=== PATIENT | male | born 1955 | race Two or more races ===

== ENCOUNTER 2018-01-28 14:04 | Emergency (ER) | payer OTHER ==
[2018-01-28 14:18] VITALS: BP 175/110; PULSE 80; TEMP 98.2
--- NOTE | 2018-01-28 14:23 | PDOC ---
Rapid Medical Evaluation Time Seen by Provider: 01/28/18 14:18 Medical Evaluation: Allergies Allergy/AdvReac Type Severity Reaction Status Date / Time No Known Allergies Allergy Verified 01/28/18 14:13 01/28/18 14:18 I have performed a brief in-person evaluation of the patient. The patient presents with a chief complaint of : blood in urine x 3 days. Patient reports after working and doing heavy lifting he notices blood in urine. Had a right iguinal hernia 15 years ago Pertinent physical exam findings. NAD unlabored breating no abdominal tenderness I have ordered the following urinalysia, urine culture, cbc, type and hold This patient will proceed to the ED for further evaluation.
--- NOTE | 2018-01-28 14:38 | PDOC ---
History of Present Illness - General Chief Complaint: Hematuria Stated Complaint: URINARY PROBLEM Time Seen by Provider: 01/28/18 14:18 - History of Present Illness Initial Comments: 62 year old male with no PMH presenting with dark red urine for the past three days. 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 Denies genital pain, lower back pain, fevers, chills, nausea, vomiting, diarrhea, cough, or other symptoms. He has no family history of kidney disease, denies trauma to the kidneys, denies smoking history, frequent EtOh ingestion, or recent travel. He saw his PCP last two years ago and was not diagnosed with any issues. He does admit that he no longer has a PCP and never consistently followed with him in the past. 01/28/18 14:50 Past History - Past Medical History Allergies/Adverse Reactions: Allergies Allergy/AdvReac Type Severity Reaction Status Date / Time No Known Allergies Allergy Verified 01/28/18 14:13 COPD: No - Suicide/Smoking/Psychosocial Hx Smoking History: Never smoked Hx Alcohol Use: No Drug/Substance Use Hx: No Substance Use Type: None Review of Systems - Review of Systems Constitutional: No: Chills, Diaphoresis, Fever, Loss of Appetite HEENTM: No: Blurred Vision, Tearing Respiratory: No: Cough, Orthopnea, Shortness of Breath Cardiac (ROS): No: Chest Pain, Edema, Irregular Heart Rate ABD/GI: No: Diarrhea, Nausea, Vomiting : No: Dysuria, Discharge, Frequency Musculoskeletal: No: Back Pain, Gout, Joint Pain, Muscle Weakness Integumentary: No: Bruising, Lesions, Lumps Neurological: No: Headache, Numbness, Paresthesia Psychiatric: No: Anxiety, Depression Hematologic/Lymphatic: No: Anemia, Blood Clots, Easy Bleeding *Physical Exam - Vital Signs Last Vital Signs Temp Pulse Resp BP Pulse Ox 98.2 F 80 20 175/110 98 01/28/18 14:13 01/28/18 14:13 01/28/18 14:13 01/28/18 14:13 01/28/18 14:13 - Physical Exam General Appearance: Yes: Nourished, Appropriately Dressed. No: Apparent Distress HEENT: positive: EOMI, JUSTINO, Normal ENT Inspection, Normal Voice Neck: positive: Trachea midline, Normal Thyroid, Supple. negative: Tender, Rigid Respiratory/Chest: positive: Lungs Clear, Normal Breath Sounds. negative: Chest Tender, Respiratory Distress, Accessory Muscle Use Cardiovascular: positive: Regular Rhythm, Regular Rate Gastrointestinal/Abdominal: positive: Normal Bowel Sounds, Flat, Soft. negative : Tender Musculoskeletal: positive: Normal Inspection. negative: CVA Tenderness Extremity: positive: Normal Capillary Refill, Normal Inspection, Normal Range of Motion. negative: Tender Integumentary: positive: Normal Color, Dry, Warm Neurologic: positive: Fully Oriented, Alert, Normal Mood/Affect, Normal Response , Motor Strength 01/03 ED Treatment Course - LABORATORY CBC & Chemistry Diagram: 01/28/18 14:33 01/28/18 14:33 Medical Decision Making - Medical Decision Making 62 year old male with no known PMH presenting with painless hematuria for the past few days in the setting of increased physical workoad. Denies any history of renal disease or family history. He is also hypertensive. With this constellation of symptoms, we are concerned for a renal lesion such as renal cell carcinoma. Other intrarenal lesions and intra urinary tract lesions should be ruled out with a ct abdomen/ pelvis with IV contrast. Patient signed out to Dr. Sales pending scan and disposition. 01/28/18 19:01 *DC/Admit/Observation/Transfer Diagnosis at time of Disposition: Hematuria Qualifiers: Hematuria type: gross Qualified Code(s): R31.0 - Gross hematuria - Referrals - Patient Instructions - Post Discharge Activity
[2018-01-28 14:50] LABS: BASO % 0.5 % (0-2.0); HEMATOCRIT 40.9 % (35.4-49); HEMOGLOBIN 14.5 GM/dL (11.7-16.9); LYMPH % 34.3 % (8-40); MCH 34.3 pg (25.7-33.7); MCHC 35.4 g/dl (32.0-35.9); MEAN PLT VOLUME 9.4 fl (7.5-11.1); MONO % 6.5 % (3.8-10.2); NEUT % 55.7 % (42.8-82.8); PLATELET COUNT 119 K/MM3 (134-434); RBC 4.21 M/mm3 (4.00-5.60); RDW 12.6 % (11.9-15.9); WHITE BLOOD COUNT 3.2 K/mm3 (4.0-10.0)
[2018-01-28 15:00] LABS: URINE APPEARANCE CLOUDY; URINE BILIRUBIN NEGATIVE (<2.0 mg/dL); URINE COLOR YELLOW; URINE GLUCOSE (UA) NEGATIVE (NEGATIVE); URINE KETONE NEGATIVE (NEGATIVE); URINE LEUK ESTERASE NEGATIVE (NEGATIVE); URINE NITRITE NEGATIVE (NEGATIVE); URINE UROBILINOGEN 4.0 E.U/dl mg/dL (0.2-1.0)
[2018-01-28 15:01] LABS: PROTHROMBIN TIME (PATIENT) 11.3 SEC (9.7-13.0)
[2018-01-28 15:04] LABS: ACTIVATED PTT 29.6 SECONDS (26.9-34.4)
[2018-01-28 15:13] LABS: ALBUMIN 3.8 g/dl (3.4-5.0); ALK PHOS 51 U/L (45-117); ANION GAP 6 (8-16); CALCIUM 8.3 mg/dL (8.5-10.1); CHLORIDE 104 mmol/L (98-107); CO2 28 mmol/L (21-32); CREATININE 1.3 mg/dL (0.7-1.3); GLUCOSE,RANDOM 171 mg/dL (74-106); POTASSIUM 3.6 mmol/L (3.5-5.1); SGOT/AST 21 U/L (15-37); SGPT/ALT 28 U/L (12-78); SODIUM 138 mmol/L (136-145)
[2018-01-28 15:32] LABS: BILIRUBIN,TOTAL 0.7 mg/dL (0.2-1.0); BLOOD UREA NITROGEN 15 mg/dL (7-18); TOT PROT 7.3 g/dl (6.4-8.2)
[2018-01-28 15:35] LABS: URINE PROTEIN 1+ (NEGATIVE)
--- NOTE | 2018-01-28 15:38 | PDOC ---
Attending Attestation - Resident Resident Name: Fredy Brar - ED Attending Attestation I have performed the following: I have examined & evaluated the patient, The case was reviewed & discussed with the resident, I agree w/resident's findings & plan, Exceptions are as noted - HPI HPI: 01/28/18 15:38 The patient is a 62 year old male, with no significant past medical history, who presents to the emergency department with hematuria for approximately 5 days. The patient reports he first noted his urine was darker than his baseline and was a red tinge Friday night. Patient reports he initially passed clots, but that has cleared since. Patient reports he does heavy lifting at work and occasionally leans these objects on his abdomen, and he is afraid to have injured his hernia surgical site. He denies any abdominal pain, nausea, vomiting, diarrhea, constipation, melena, hematochezia, or bowel incontinence. He denies any flank pain, dysuria, frequency, urgency, or urinary incontinence. He denies any fever, chills, cough, headache, dizziness, lightheadedness, night sweats, or weight loss. He denies any family history of blood in the urine or kidney disease. Allergies: NKDA Past Surgical History: Hernia repair Social History: Non smoker. No ETOH or recreational drug use. - Physicial Exam PE: 01/28/18 15:40 GENERAL: Awake, alert, and fully oriented, in no acute distress HEAD: No signs of trauma EYES: PERRLA, EOMI, sclera anicteric, conjunctiva clear ENT: Auricles normal inspection, hearing grossly normal, nares patent, oropharynx clear without exudates. Moist mucosa NECK: Normal ROM, supple, no lymphadenopathy, JVD, or masses LUNGS: Breath sounds equal, clear to auscultation bilaterally. No wheezes, and no crackles HEART: Regular rate and rhythm, normal S1 and S2, no murmurs, rubs or gallops ABDOMEN: Soft, nontender, normoactive bowel sounds. No guarding, no rebound. No masses. No CVAT. EXTREMITIES: Normal range of motion, no edema. No clubbing or cyanosis. No cords, erythema, or tenderness NEUROLOGICAL: Normal speech, cranial nerves intact, negative pronator drift, 5/ 5 strength in all 4 extremities, normal sensation to light touch in all 4 extremities, normal cerebellar exam, normal gait, normal reflexes and tone SKIN: Warm, Dry, normal turgor, no rashes or lesions noted. - Medical Decision Making 01/28/18 15:40 62yo M with no significant past medical history presents to the emergency department with 5 days of hematuria. Vitals remarkable for hypertension, which patient denies any history of. Exam within normal limits. Essentially the patient has painless hematuria. Unclear etiology of the symptoms, thus we'll obtain a CT abdomen and pelvis in addition to labs and urinalysis and reassess. 01/28/18 16:21 Labs wnl. UA with many reds/whites CTAP pending Pt signed out to evening attending for further mgmt/dispo
[2018-01-28 15:48] LABS: URINE APPEARANCE SLCLOUDY; URINE BILIRUBIN NEGATIVE (<2.0 mg/dL); URINE COLOR LTYELLOW; URINE GLUCOSE (UA) NEGATIVE (NEGATIVE); URINE KETONE NEGATIVE (NEGATIVE); URINE LEUK ESTERASE NEGATIVE (NEGATIVE); URINE NITRITE NEGATIVE (NEGATIVE); URINE PROTEIN NEGATIVE (NEGATIVE); URINE UROBILINOGEN 4.0 E.U/dl mg/dL (0.2-1.0)
--- NOTE | 2018-01-28 19:10 | PDOC ---
*Physical Exam - Vital Signs Last Vital Signs Temp Pulse Resp BP Pulse Ox 98.2 F 80 20 175/110 98 01/28/18 14:13 01/28/18 14:13 01/28/18 14:13 01/28/18 14:13 01/28/18 14:13 ED Treatment Course - LABORATORY CBC & Chemistry Diagram: 01/28/18 14:33 01/28/18 14:33 - ADDITIONAL ORDERS Additional order review: Laboratory Results 01/28/18 01/28/18 01/28/18 15:03 14:33 14:33 PT with INR INR PTT (Actin FS) Sodium Potassium Chloride Carbon Dioxide Anion Gap BUN Creatinine Creat Clearance w eGFR Random Glucose Calcium Total Bilirubin AST ALT Alkaline Phosphatase Creatine Kinase 245 Creatine Kinase Index 0.4 CK-MB (CK-2) 1.035 Total Protein Albumin Urine Color Ltyellow Urine Appearance Slcloudy Urine pH 8.0 Ur Specific [place] 1.016 Urine Protein Negative Urine Glucose (UA) Negative Urine Ketones Negative Urine Blood 3+ H Urine Nitrite Negative Urine Bilirubin Negative Urine Urobilinogen 4.0 e.u/dl Ur Leukocyte Esterase Negative Urine WBC (Auto) 242 Urine RBC (Auto) 337 Blood Type A POSITIVE Antibody Screen Negative 01/28/18 01/28/18 01/28/18 14:33 14:33 14:28 PT with INR 11.30 INR 1.00 PTT (Actin FS) 29.6 Sodium 138 Potassium 3.6 Chloride 104 Carbon Dioxide 28 Anion Gap 6 L BUN 15 Creatinine 1.3 Creat Clearance w eGFR 56.12 Random Glucose 171 H Calcium 8.3 L Total Bilirubin 0.7 AST 21 ALT 28 Alkaline Phosphatase 51 Creatine Kinase Creatine Kinase Index CK-MB (CK-2) Total Protein 7.3 Albumin 3.8 Urine Color Yellow Urine Appearance Cloudy Urine pH 7.0 Ur Specific [place] 1.017 Urine Protein 1+ H Urine Glucose (UA) Negative Urine Ketones Negative Urine Blood 3+ H Urine Nitrite Negative Urine Bilirubin Negative Urine Urobilinogen 4.0 e.u/dl Ur Leukocyte Esterase Negative Urine WBC (Auto) 479 Urine RBC (Auto) 989 Blood Type Antibody Screen 01/28/18 14:33 RBC 4.21 MCV 97.0 H MCHC 35.4 RDW 12.6 MPV 9.4 Neutrophils % 55.7 Lymphocytes % 34.3 Monocytes % 6.5 Eosinophils % 3.0 Basophils % 0.5 Medical Decision Making - Medical Decision Making 01/28/18 19:09 Care taken over from Dr. Brar. 01/28/18 19:59 CT negative for acute pathology. Patient given urology follow-up and bactrim for UTI treatment. Discharging to home. *DC/Admit/Observation/Transfer Diagnosis at time of Disposition: Hematuria Qualifiers: Hematuria type: gross Qualified Code(s): R31.0 - Gross hematuria - Discharge Dispostion Disposition: HOME - Prescriptions Prescriptions: Sulfamethoxazole/Trimethoprim [Bactrim Ds -] 1 tab PO BID #14 tablet - Referrals Referrals: Kole Cintron MD., MD [Staff Physician] - - Patient Instructions Printed Discharge Instructions: DI for Hematuria Additional Instructions: Please follow-up with Urology as discussed. Return to ER if any increase in pain , fever, chills, or other concerning symptoms. Print Language: BELIZEAN - Post Discharge Activity Forms/Work/School Notes: Back to Work
[2018-01-28] MEDS ORDERED: SULFAMETHOXAZOLE/TRIMETHOPRIM 800MG/160MG D.S. TABLET PO ONE (19:48)
[2018-01-28] MEDS ORDERED: ACETAMINOPHEN 500 MG TABLET (FP) PO ONE (19:57)
[2018-01-28] MEDS ORDERED: ACETAMINOPHEN 325 MG TABLET (FP) ONE (20:02)
[2018-01-28] MEDS ORDERED: SULFAMETHOXAZOLE/TRIMETHOPRIM 800MG/160MG D.S. TABLET ONE (20:02)
== END 2018-01-28 20:37 | disposition home or self-care (01) ==
LOC: JER 14:04
DX: R31.0 Gross hematuria (principal)
CPT/HCPCS: 36415; 74177-TC; 80053; 81003; 81015; 82550; 82553; 85025; 85610; 85730; 86850; 86900; 86901; 87086; 99282-25

== ENCOUNTER 2018-01-29 12:58 | Observation (INO) | payer OTHER ==
--- NOTE | 2018-01-29 13:24 | PDOC ---
History of Present Illness - General Chief Complaint: Hematuria Stated Complaint: REVISIT/ HEMATUREA/RETNETION Time Seen by Provider: 01/29/18 13:24 - History of Present Illness Initial Comments: 01/29/18 13:30 Mr. Farooq is a 62 yo male w/ no pmh who presents for evaluation of dark red urine for several days. He presented yesterday for this same problem and was found to have significant WBC's in his urine however BUN/Cr and abdominal/ pelvis CT were negative for acute process, however marked prostate enlargement was noted. Patient represents as he was having difficulty urinating this morning with increased bilateral lower abdominal pain and abdominal swelling. The patient denies chest pain, shortness of breath, headache and dizziness. Denies fever, chills, nausea, vomit, diarrhea and constipation. Allergies: NKDA Past History - Past Medical History Allergies/Adverse Reactions: Allergies Allergy/AdvReac Type Severity Reaction Status Date / Time No Known Allergies Allergy Verified 01/29/18 13:00 Home Medications: Ambulatory Orders Sulfamethoxazole/Trimethoprim [Bactrim Ds -] 1 tab PO BID #14 tablet 01/28/18 COPD: No DVT: No - Suicide/Smoking/Psychosocial Hx Smoking History: Never smoked Information on smoking cessation initiated: No Hx Alcohol Use: No Drug/Substance Use Hx: No Substance Use Type: None Review of Systems - Review of Systems Comments:: 01/29/18 13:33 GENERAL/CONSTITUTIONAL: No fever or chills. No weakness. HEAD, EYES, EARS, NOSE AND THROAT: No change in vision. No ear pain or discharge. No sore throat. CARDIOVASCULAR: No chest pain or shortness of breath RESPIRATORY: No cough, wheezing, or hemoptysis. GASTROINTESTINAL: No nausea, vomiting, diarrhea or constipation. GENITOURINARY: +Difficulty urinating this morning. Continued ry blood in urine. MUSCULOSKELETAL: No joint or muscle swelling or pain. No neck or back pain. SKIN: No rash NEUROLOGIC: No headache, vertigo, loss of consciousness, or change in strength/ sensation. ENDOCRINE: No increased thirst. No abnormal weight change HEMATOLOGIC/LYMPHATIC: No anemia, easy bleeding, or history of blood clots. ALLERGIC/IMMUNOLOGIC: No hives or skin allergy. *Physical Exam - Vital Signs Last Vital Signs Temp Pulse Resp BP Pulse Ox 98.6 F 114 H 20 170/110 100 01/29/18 13:01 01/29/18 13:01 01/29/18 13:01 01/29/18 13:01 01/29/18 13:01 - Physical Exam Comments: 01/29/18 13:33 GENERAL: Awake, alert, and fully oriented, in no acute distress HEAD: No signs of trauma, normocephalic, atraumatic EYES: PERRLA, EOMI, sclera anicteric, conjunctiva clear ENT: Auricles normal inspection, hearing grossly normal, nares patent, oropharynx clear without exudates. Moist mucosa NECK: Normal ROM, supple, no lymphadenopathy, JVD, or masses LUNGS: No distress, speaks full sentences, clear to auscultation bilaterally HEART: Regular rate and rhythm, normal S1 and S2, no murmurs, rubs or gallops, peripheral pulses normal and equal bilaterally. ABDOMEN: +Abdomen appears somewhat distended, TTP bilaterally in lower quadrants. Normoactive bowel sounds. No guarding, no rebound. No masses EXTREMITIES: Normal inspection, Normal range of motion, no edema. No clubbing or cyanosis. NEUROLOGICAL: Cranial nerves II through XII grossly intact. Normal speech, normal gait, no focal sensorimotor deficits SKIN: Warm, Dry, normal turgor, no rashes or lesions noted. Medical Decision Making - Medical Decision Making 01/29/18 14:51 Mr. Farooq is a 62 yo male w/ no pmh who presents for evaluation of inability to urinate. Callaway catheter revealed copious ry blood with XXX mL obtained. 01/29/18 14:[address] Cintron (urology) who will evaluate patient. Dr. Cintron requested callaway catheter left in and manually irrigated Q2hrs with 250mL normal saline over CBI. Will comply and admit patient for further workup. 01/29/18 16:02 Patient admitted to medicine team. *DC/Admit/Observation/Transfer Diagnosis at time of Disposition: Hematuria Qualifiers: Hematuria type: gross Qualified Code(s): R31.0 - Gross hematuria - Discharge Dispostion Decision to Admit order: Yes - Referrals - Patient Instructions - Post Discharge Activity
[2018-01-29] MEDS ORDERED: ACETAMINOPHEN 500 MG TABLET (FP) PO ONE (13:43)
[2018-01-29] MEDS ORDERED: ACETAMINOPHEN 325 MG TABLET (FP) ONE (13:57)
--- NOTE | 2018-01-29 13:58 | PDOC ---
Attending Attestation - Resident Resident Name: Nagi Sales - HPI HPI: 01/29/18 14:24 Pt presents to the ED complaining of urinary retention and hematuria. Seen in the ED for hematuria, CT scans were negative and patient was discharged home, but has been passing clots since discharge. Denies nausea, vomiting, dysuria or fever. - Physicial Exam PE: 01/29/18 14:29 Agree with resident's exam. Abdomen is distended and mildly tender in the suprapubic area. He is well appearing and in no acute distress on my exam. - Medical Decision Making 01/29/18 14:33 Pt presents to the ED with abdominal distention and pain after hematuria with clots. Likely urinary retention. Will place callaway catheter and reassess.
[2018-01-29 15:23] LABS: URINE APPEARANCE CLOUDY; URINE BILIRUBIN NEGATIVE (<2.0 mg/dL); URINE COLOR AMBER; URINE GLUCOSE (UA) 2+ (NEGATIVE); URINE KETONE NEGATIVE (NEGATIVE); URINE LEUK ESTERASE NEGATIVE (NEGATIVE); URINE NITRITE POSITIVE (NEGATIVE); URINE UROBILINOGEN NEGATIVE mg/dL (0.2-1.0)
[2018-01-29 15:27] LABS: URINE PROTEIN 3+ (NEGATIVE)
[2018-01-29 15:41] LABS: EPI CELLS MODERATE /HPF (FEW); URINE BACTERIA MODERATE /hpf (NONE SEEN)
[2018-01-29 15:42] LABS: URINE MUCUS 2+
--- NOTE | 2018-01-29 17:30 | HP ---
CHIEF COMPLAINT: difficulty with urination PCP: HISTORY OF PRESENT ILLNESS: Patient is a 62 year old male with no significant past medical history and is on no home medications. He presents to the ED for evaluation of dark red urine for a few days. He was seen in the ED yesterday and a abdomen/pelvis CT was negative for any acute process but an enlarged prostate was seen. Patient states he returned to the ED today as he was having difficulty urinating and when he experienced pain and increased lower abdominal pain, he returned to the ER In the ED he was noted to have gross hematuria in the callaway catheter, apx 1300cc. He denies any chest pain, shortness of breath, fever or chills. ER course was notable for: (1) stable cbc (2) ct abd/pelvis: No obvious renal mass lesions, enlarged prostate (3) Recent Travel: PAST MEDICAL HISTORY: PAST SURGICAL HISTORY: Social History: Smoking: denies Alcohol: denies Drugs: denies Family History: Allergies No Known Allergies Allergy (Verified 01/29/18 13:00) HOME MEDICATIONS: Home Medications Medication Instructions Recorded Sulfamethoxazole/Trimethoprim 1 tab PO BID #14 tablet 01/28/18 [Bactrim Ds -] PHYSICAL EXAMINATION Vital Signs - 24 hr 01/29/18 13:01 Temperature 98.6 F Pulse Rate 114 H Respiratory 20 Rate Blood Pressure 170/110 O2 Sat by Pulse 100 Oximetry (%) GENERAL: Awake, alert, and fully oriented, in no acute distress. HEAD: Normal with no signs of trauma. EYES: Pupils equal, round and reactive to light, extraocular movements intact, sclera anicteric, conjunctiva clear. No lid lag. EARS, NOSE, THROAT: Ears normal, nares patent, oropharynx clear without exudates. Moist mucous membranes. NECK: Normal range of motion, supple without lymphadenopathy, JVD, or masses. LUNGS: Breath sounds equal, clear to auscultation bilaterally. No wheezes, and no crackles. No accessory muscle use. HEART: Regular rate and rhythm, normal S1 and S2 without murmur, rub or gallop. ABDOMEN: Soft, nontender, not distended, normoactive bowel sounds, MUSCULOSKELETAL: Normal range of motion at all joints. No bony deformities or tenderness. No CVA tenderness. UPPER EXTREMITIES: No clubbing. No peripheral edema. LOWER EXTREMITIES: No peripheral edema. NEUROLOGICAL: Normal speech. PSYCHIATRIC: Cooperative. Good eye contact. Appropriate mood and affect. SKIN: Warm, dry, normal turgor, no rashes or lesions noted, normal capillary refill. Laboratory Results - last 24 hr 01/29/18 01/29/18 14:18 14:59 Urine Color [place] Urine Appearance Cloudy Urine pH 7.0 Ur Specific [place] 1.020 Urine Protein 3+ H Urine Glucose (UA) 2+ H Urine Ketones Negative Urine Blood 2+ H Urine Nitrite Positive Urine Bilirubin Negative Urine Urobilinogen Negative Ur Leukocyte Esterase Negative Urine WBC (Auto) 25 Urine RBC (Auto) 2000 Ur Epithelial Cells Moderate Urine Bacteria Moderate Urine Mucus 2+ ASSESSMENT/PLAN: Patient is a 62 year old male with no significant past medical history and is on no home medications. He presents to the ED for evaluation of dark red urine for a few days. He was seen in the ED yesterday and a abdomen/pelvis CT was negative for any acute process but an enlarged prostate was seen. Patient states he returned to the ED today as he was having difficulty urinating and when he experienced pain and increased lower abdominal pain, he returned to the ER In the ED he was noted to have gross hematuria in the callaway catheter, apx 1300cc. He denies any chest pain, shortness of breath, fever or chills. : Enlarged prostate, difficulty passing urine Callaway catheter with gross hematuria, clots Irrigation with NS Start of Flomax NS @ 100cc/hr Monitor CBC, type and screen ordered Urology consulted by ED provider Hypertension On no home medications F.E.N. Fluids: NS @ 100cc.hr Electrolytes: monitor Nutrition: low salt Prohy: DVT: none 2/2 hematuria GI: Protonix Disposition full code. Hospitalist Screening - Colonoscopy Questionnaire Colonoscopy Questionnaire: Colonoscopy Questionnaire
[2018-01-29] MEDS: SODIUM CHLORIDE 1,000 ML IV SCH (18:15)
[2018-01-29] MEDS ORDERED: LISINOPRIL 5 MG TABLET (FP) PO ONE (18:15)
[2018-01-29] MEDS ORDERED: LISINOPRIL 5 MG TABLET (FP) ONE (18:22)
[2018-01-29 20:17] LABS: BASO % 0.1 % (0-2.0); EOS % 0.2 % (0-4.5); LYMPH % 17.4 % (8-40); MCH 33.8 pg (25.7-33.7); MCHC 34.9 g/dl (32.0-35.9); MEAN CELL VOLUME 96.6 fl (80-96); MEAN PLT VOLUME 9.9 fl (7.5-11.1); MONO % 9.6 % (3.8-10.2); NEUT % 72.7 % (42.8-82.8); PLATELET COUNT 135 K/MM3 (134-434); RBC 4.14 M/mm3 (4.00-5.60); RDW 12.6 % (11.9-15.9); WHITE BLOOD COUNT 6.5 K/mm3 (4.0-10.0)
[2018-01-29 20:34] VITALS: BMI 29.9
[2018-01-29 20:53] LABS: ALBUMIN 3.8 g/dl (3.4-5.0); ANION GAP 9 (8-16); BLOOD UREA NITROGEN 15 mg/dL (7-18); CALCIUM 8.5 mg/dL (8.5-10.1); CHLORIDE 100 mmol/L (98-107); CO2 28 mmol/L (21-32); CREATININE 1.4 mg/dL (0.7-1.3); GLUCOSE,RANDOM 115 mg/dL (74-106); MAGNESIUM 2.2 mg/dL (1.8-2.4); POTASSIUM 3.8 mmol/L (3.5-5.1); SGOT/AST 24 U/L (15-37); SGPT/ALT 26 U/L (12-78); SODIUM 137 mmol/L (136-145)
[2018-01-29 20:54] LABS: ALK PHOS 49 U/L (45-117); BILIRUBIN,TOTAL 0.9 mg/dL (0.2-1.0); TOT PROT 7.1 g/dl (6.4-8.2)
[2018-01-29] MEDS ORDERED: ACETAMINOPHEN 325 MG TABLET (FP) PO PRN (22:16)
[2018-01-29] MEDS ORDERED: TAMSULOSIN HCL 0.4 MG CAP.ER.24H (FP) PO ONE (22:16)
[2018-01-30] MEDS: SODIUM CHLORIDE 1,000 ML IV SCH ×2 (02:38→15:14)
[2018-01-30] MEDS: TAMSULOSIN HCL 0.4 MG CAP.ER.24H (FP) PO SCH (08:55)
--- NOTE | 2018-01-30 10:06 | EKG ---
Test Reason : Blood Pressure : / mmHG Vent. Rate : 084 BPM Atrial Rate : 084 BPM P-R Int : 144 ms QRS Dur : 070 ms QT Int : 360 ms P-R-T Axes : 044 -19 -23 degrees QTc Int : 425 ms NORMAL SINUS RHYTHM MINIMAL VOLTAGE CRITERIA FOR LVH, MAY BE NORMAL VARIANT NONSPECIFIC T WAVE ABNORMALITY ABNORMAL ECG WHEN COMPARED WITH ECG OF 29-JAN-2018 15:29, NO SIGNIFICANT CHANGE WAS FOUND Confirmed by ARMIDA MENA MD ([id number]) on 01/30/2018 10:06:17 AM Referred By: Confirmed By:ARMIDA MENA MD
[2018-01-30 10:07] LABS: BASO % 0.3 % (0-2.0); EOS % 1.3 % (0-4.5); HEMATOCRIT 35.8 % (35.4-49); HEMOGLOBIN 12.6 GM/dL (11.7-16.9); LYMPH % 18.6 % (8-40); MCH 34.5 pg (25.7-33.7); MCHC 35.1 g/dl (32.0-35.9); MEAN CELL VOLUME 98.4 fl (80-96); MEAN PLT VOLUME 9.3 fl (7.5-11.1); MONO % 8.7 % (3.8-10.2); NEUT % 71.1 % (42.8-82.8); PLATELET COUNT 103 K/MM3 (134-434); RBC 3.63 M/mm3 (4.00-5.60); RDW 12.8 % (11.9-15.9); WHITE BLOOD COUNT 4.6 K/mm3 (4.0-10.0)
--- NOTE | 2018-01-30 10:17 | EKG ---
Test Reason : Blood Pressure : / mmHG Vent. Rate : 092 BPM Atrial Rate : 092 BPM P-R Int : 154 ms QRS Dur : 076 ms QT Int : 362 ms P-R-T Axes : 056 -16 -20 degrees QTc Int : 447 ms NORMAL SINUS RHYTHM MODERATE VOLTAGE CRITERIA FOR LVH, MAY BE NORMAL VARIANT NONSPECIFIC T WAVE ABNORMALITY ABNORMAL ECG NO PREVIOUS ECGS AVAILABLE Confirmed by ARMIDA MENA MD ([id number]) on 01/30/2018 10:16:31 AM Referred By: Confirmed By:ARMIDA MENA MD
[2018-01-30 10:34] LABS: CHLORIDE 105 mmol/L (98-107); POTASSIUM 4.2 mmol/L (3.5-5.1); SODIUM 141 mmol/L (136-145)
[2018-01-30 10:39] LABS: CHOLESTEROL 128 mg/dL (50-200); HDL CHOLESTEROL 45 mg/dL (40-60); TRIGLYCERIDES 58 mg/dL (35-160)
[2018-01-30 11:05] LABS: ALBUMIN 3.2 g/dl (3.4-5.0); ALK PHOS 40 U/L (45-117); ANION GAP 7 (8-16); BILIRUBIN,TOTAL 0.8 mg/dL (0.2-1.0); BLOOD UREA NITROGEN 15 mg/dL (7-18); CALCIUM 8.2 mg/dL (8.5-10.1); CO2 29 mmol/L (21-32); CREATININE 1.4 mg/dL (0.7-1.3); GLUCOSE,RANDOM 154 mg/dL (74-106); MAGNESIUM 2.2 mg/dL (1.8-2.4); SGOT/AST 18 U/L (15-37); SGPT/ALT 22 U/L (12-78); TOT PROT 6.2 g/dl (6.4-8.2)
--- NOTE | 2018-01-30 15:39 | PN ---
Physical Exam: SUBJECTIVE: Patient seen and examined OBJECTIVE: Vital Signs Period Temp Pulse Resp BP Sys/Gonzalez Pulse Ox Last 24 Hr 97.9 F-98.7 F 74-96 18-20 110-148/56-87 96-99 GENERAL: Awake, alert, and fully oriented, in no acute distress. HEAD: Normal with no signs of trauma. EYES: Pupils equal, round and reactive to light, extraocular movements intact, sclera anicteric, conjunctiva clear. No lid lag. EARS, NOSE, THROAT: Ears normal, nares patent, oropharynx clear without exudates. Moist mucous membranes. NECK: Normal range of motion, supple without lymphadenopathy, JVD, or masses. LUNGS: Breath sounds equal, clear to auscultation bilaterally. No wheezes, and no crackles. No accessory muscle use. HEART: Regular rate and rhythm, normal S1 and S2 without murmur, rub or gallop. ABDOMEN: Soft, nontender, not distended, normoactive bowel sounds, MUSCULOSKELETAL: Normal range of motion at all joints. No bony deformities or tenderness. No CVA tenderness. UPPER EXTREMITIES: No clubbing. No peripheral edema. LOWER EXTREMITIES: No peripheral edema. NEUROLOGICAL: Normal speech. PSYCHIATRIC: Cooperative. Good eye contact. Appropriate mood and affect. SKIN: Warm, dry, normal turgor, no rashes or lesions noted, normal capillary refill. Laboratory Results - last 24 hr 01/29/18 01/29/18 01/29/18 14:59 19:00 19:00 WBC 6.5 D RBC 4.14 Hgb 14.0 Hct 40.0 MCV 96.6 H MCH 33.8 H MCHC 34.9 RDW 12.6 Plt Count 135 MPV 9.9 Neutrophils % 72.7 D Lymphocytes % 17.4 D Monocytes % 9.6 Eosinophils % 0.2 D Basophils % 0.1 Nucleated RBC % 0 Sodium 137 Potassium 3.8 Chloride 100 Carbon Dioxide 28 Anion Gap 9 BUN 15 Creatinine 1.4 H Creat Clearance w eGFR 51.52 Random Glucose 115 H D Hemoglobin A1c % Calcium 8.5 Magnesium 2.2 Total Bilirubin 0.9 D AST 24 ALT 26 Alkaline Phosphatase 49 Total Protein 7.1 Albumin 3.8 Triglycerides Cholesterol Total LDL Cholesterol HDL Cholesterol Urine WBC (Auto) 25 Urine RBC (Auto) 2000 Ur Epithelial Cells Moderate Urine Bacteria Moderate Urine Mucus 2+ Blood Type Antibody Screen 01/29/18 01/30/18 01/30/18 19:00 09:30 09:30 WBC 4.6 RBC 3.63 L Hgb 12.6 Hct 35.8 MCV 98.4 H MCH 34.5 H MCHC 35.1 RDW 12.8 Plt Count 103 L D MPV 9.3 Neutrophils % 71.1 Lymphocytes % 18.6 Monocytes % 8.7 Eosinophils % 1.3 D Basophils % 0.3 Nucleated RBC % 0 Sodium 141 Potassium 4.2 Chloride 105 Carbon Dioxide 29 Anion Gap 7 L BUN 15 Creatinine 1.4 H Creat Clearance w eGFR 51.52 Random Glucose 154 H D Hemoglobin A1c % Calcium 8.2 L Magnesium 2.2 Total Bilirubin 0.8 AST 18 D ALT 22 Alkaline Phosphatase 40 L Total Protein 6.2 L Albumin 3.2 L Triglycerides Cholesterol Total LDL Cholesterol HDL Cholesterol Urine WBC (Auto) Urine RBC (Auto) Ur Epithelial Cells Urine Bacteria Urine Mucus Blood Type A POSITIVE Antibody Screen Negative 01/30/18 01/30/18 09:30 09:30 WBC RBC Hgb Hct MCV MCH MCHC RDW Plt Count MPV Neutrophils % Lymphocytes % Monocytes % Eosinophils % Basophils % Nucleated RBC % Sodium Potassium Chloride Carbon Dioxide Anion Gap BUN Creatinine Creat Clearance w eGFR Random Glucose Hemoglobin A1c % 5.1 Calcium Magnesium Total Bilirubin AST ALT Alkaline Phosphatase Total Protein Albumin Triglycerides 58 Cholesterol 128 Total LDL Cholesterol 85 HDL Cholesterol 45 Urine WBC (Auto) Urine RBC (Auto) Ur Epithelial Cells Urine Bacteria Urine Mucus Blood Type Antibody Screen Active Medications Generic Name Dose Route Start Last Admin Trade Name Freq PRN Reason Stop Dose Admin Acetaminophen 650 mg 01/29/18 22:16 Tylenol - PO Q6H PRN PAIN LEVEL 7 - 10 Sodium Chloride 1,000 mls @ 100 mls/hr 01/29/18 18:15 01/30/18 15:14 Normal Saline - IV 100 mls/hr ASDIR DAVDI Administration Tamsulosin HCl 0.4 mg 01/30/18 08:30 01/30/18 08:55 Flomax - PO 0.4 mg DAILY@0830 DAVID Administration ASSESSMENT/PLAN: Patient is a 62 year old male with no significant past medical history and is on no home medications. He presents to the ED for evaluation of dark red urine for a few days. He was seen in the ED yesterday and a abdomen/pelvis CT was negative for any acute process but an enlarged prostate was seen. Patient states he returned to the ED today as he was having difficulty urinating and when he experienced pain and increased lower abdominal pain, he returned to the ER In the ED he was noted to have gross hematuria in the callaway catheter, apx 1300cc. He denies any chest pain, shortness of breath, fever or chills. : Enlarged prostate, difficulty passing urine Callaway catheter with gross hematuria, clots Irrigation with NS Start of Flomax NS @ 100cc/hr Monitor CBC, type and screen ordered Urology following Hypertension On no home medications F.E.N. Fluids: NS @ 100cc.hr Electrolytes: monitor Nutrition: low salt Prohy: DVT: none 2/2 hematuria GI: Protonix Disposition full code.
--- NOTE | 2018-01-30 16:44 | CON.GU ---
Consult Consult Specialty:: Referred by:: medicine Reason for Consultation:: urinary retention and hematuria - History of Present Illness Chief Complaint: urinary retention and hematuria History of Present Illness: 62 year old male presents to the ER with urinary retention He denies any personal or family history of prostate issues. Callaway cath was placed with 1300ml return. He is also observed to have a UTI. Urine is currently blood tinged. - History Source History Provided By: Patient Limitations to Obtaining History: No Limitations - Past Medical History Renal/: No: Renal Failure, Renal Inusuff, BPH, Cancer, Hematuria, Hemodialysis , Neurogenic Bladder, Renal Calculi, UTI, Other - Alcohol/Substance Use Hx Alcohol Use: Yes (occasional) - Smoking History Smoking history: Never smoked Have you smoked in the past 12 months: No Home Medications - Allergies Allergies/Adverse Reactions: Allergies Allergy/AdvReac Type Severity Reaction Status Date / Time No Known Allergies Allergy Verified 01/29/18 13:00 - Home Medications Home Medications: Ambulatory Orders Sulfamethoxazole/Trimethoprim [Bactrim Ds -] 1 tab PO BID #14 tablet 01/28/18 Finasteride 5 mg PO DAILY #30 tablet 01/30/18 Tamsulosin HCl [Flomax] 0.4 mg PO HS #30 cap.er.24h 01/30/18 Review of Systems - Review of Systems Genitourinary: reports: Dysuria, Frequency, Hematuria Physical Exam- Vital Signs: Vital Signs Temperature 98.6 F 01/30/18 15:18 Pulse Rate 96 H 01/30/18 15:18 Respiratory Rate 18 01/30/18 15:18 Blood Pressure 130/87 01/30/18 15:18 O2 Sat by Pulse Oximetry (%) 96 01/30/18 08:47 Respiratory: No: WNL, Regular, CTA Bilaterally, Accessory Muscle Use, Bradypnea , [place], Cough, Diminished, Dullness, Hyperresonant, Intubated, Kussmaul , Mechanically Ventilated, On BiPap, On Nasal O2, On Venti-Mask, Orthopnea, Poor Air Entry, Rales, Rhonchi, SOB, SOB on Exertion, Stridor, Tachypnea, Wheezes, Other Gastrointestinal: No: WNL, Normal Bowel Sounds, Soft, Abdomen, Obese, Ascites, Distention, Hematemesis, Hemorrhoids, Hepatomegaly, Hernia, Hyperactive Bowel Sounds, Hypoactive Bowel Sounds, Melena, Palpable Mass, Pulsatile Mass, Rectal Bleeding, Splenomegaly, Tenderness, Tenderness, Epigastrium, Tenderness, Rebound , Vomiting, Other Renal/: Yes: Callaway Present, Hematuria, Other (enlarged prostate). No: WNL, Anuria, Bladder Distention, CVA Tenderness - Left, CVA Tenderness - Right, Incontinence, Oliguria, Polyuria, Scrotal Edema, Urethral Discharge Labs: CBC, BMP 01/30/18 09:30 01/30/18 09:30 Problem List - Problems (1) Benign localized hyperplasia of prostate with urinary obstruction Assessment/Plan: treat UTI. flomax and proscar written for. Can discharge with callaway and return to office after a week on medication for a trial of void. Dr. Guerra Code(s): N40.1 - BENIGN PROSTATIC HYPERPLASIA WITH LOWER URINARY TRACT SYMP; N13.8 - OTHER OBSTRUCTIVE AND REFLUX UROPATHY
[2018-01-30] MEDS ORDERED: SULFAMETHOXAZOLE/TRIMETHOPRIM 800MG/160MG D.S. TABLET PO ONE (19:16)
[2018-01-30] MEDS: FINASTERIDE 5 MG TABLET (FP) PO SCH (20:17)
[2018-01-31] MEDS: SODIUM CHLORIDE 1,000 ML IV SCH (02:18)
[2018-01-31 07:12] VITALS: TEMP 98.6
[2018-01-31 08:16] LABS: BASO % 0.4 % (0-2.0); HEMATOCRIT 33.1 % (35.4-49); HEMOGLOBIN 11.5 GM/dL (11.7-16.9); LYMPH % 27.5 % (8-40); MCH 34.2 pg (25.7-33.7); MCHC 34.8 g/dl (32.0-35.9); MEAN CELL VOLUME 98.3 fl (80-96); MEAN PLT VOLUME 9.5 fl (7.5-11.1); MONO % 10.5 % (3.8-10.2); NEUT % 59.6 % (42.8-82.8); PLATELET COUNT 99 K/MM3 (134-434); RBC 3.36 M/mm3 (4.00-5.60); RDW 12.5 % (11.9-15.9); WHITE BLOOD COUNT 4.1 K/mm3 (4.0-10.0)
[2018-01-31 08:28] LABS: ANION GAP 6 (8-16); BLOOD UREA NITROGEN 11 mg/dL (7-18); CHLORIDE 104 mmol/L (98-107); CO2 31 mmol/L (21-32); CREATININE 1.3 mg/dL (0.7-1.3); GLUCOSE,RANDOM 96 mg/dL (74-106); POTASSIUM 4.1 mmol/L (3.5-5.1); SODIUM 141 mmol/L (136-145)
[2018-01-31 09:46] LABS: CALCIUM 7.9 mg/dL (8.5-10.1)
[2018-01-31] MEDS ORDERED: SULFAMETHOXAZOLE/TRIMETHOPRIM 800MG/160MG D.S. TABLET PO SCH (10:00)
[2018-01-31] MEDS: TAMSULOSIN HCL 0.4 MG CAP.ER.24H (FP) PO SCH (10:10)
[2018-01-31] MEDS: FINASTERIDE 5 MG TABLET (FP) PO SCH (10:10)
[2018-01-31 12:06] VITALS: BP 135/73; PULSE 96
--- NOTE | 2018-01-31 13:34 | DS ---
Physical Exam: SUBJECTIVE: Patient seen and examined OBJECTIVE: urine clearing up, no clots, no pain hmg/hct stable discharge home with urology follow up Vital Signs Period Temp Pulse Resp BP Sys/Gonzalez Pulse Ox Last 24 Hr 98.6 F-98.8 F 80-96 18-20 127-140/73-87 PHYSICAL EXAM GENERAL: Awake, alert, and fully oriented, in no acute distress. HEAD: Normal with no signs of trauma. EYES: Pupils equal, round and reactive to light, extraocular movements intact, sclera anicteric, conjunctiva clear. No lid lag. EARS, NOSE, THROAT: Ears normal, nares patent, oropharynx clear without exudates. Moist mucous membranes. NECK: Normal range of motion, supple without lymphadenopathy, JVD, or masses. LUNGS: Breath sounds equal, clear to auscultation bilaterally. No wheezes, and no crackles. No accessory muscle use. HEART: Regular rate and rhythm, normal S1 and S2 without murmur, rub or gallop. ABDOMEN: Soft, nontender, not distended, normoactive bowel sounds, MUSCULOSKELETAL: Normal range of motion at all joints. No bony deformities or tenderness. No CVA tenderness. UPPER EXTREMITIES: No clubbing. No peripheral edema. LOWER EXTREMITIES: No peripheral edema. NEUROLOGICAL: Normal speech. PSYCHIATRIC: Cooperative. Good eye contact. Appropriate mood and affect. SKIN: Warm, dry, normal turgor, no rashes or lesions noted, normal capillary refill. LABS Laboratory Results - last 24 hr 01/31/18 01/31/18 07:00 07:00 WBC 4.1 RBC 3.36 L Hgb 11.5 L Hct 33.1 L MCV 98.3 H MCH 34.2 H MCHC 34.8 RDW 12.5 Plt Count 99 L MPV 9.5 Neutrophils % 59.6 Lymphocytes % 27.5 D Monocytes % 10.5 H Eosinophils % 2.0 Basophils % 0.4 Nucleated RBC % 0 Sodium 141 Potassium 4.1 Chloride 104 Carbon Dioxide 31 Anion Gap 6 L BUN 11 D Creatinine 1.3 Random Glucose 96 D Calcium 7.9 L HOSPITAL COURSE: Date of Admission:01/29/18 Date of Discharge: 01/31/18 Patient is a 62 year old male with no significant past medical history and is on no home medications. He presents to the ED for evaluation of dark red urine for a few days. He was seen in the ED yesterday and a abdomen/pelvis CT was negative for any acute process but an enlarged prostate was seen. Patient states he returned to the ED today as he was having difficulty urinating and when he experienced pain and increased lower abdominal pain, he returned to the ER In the ED he was noted to have gross hematuria in the callaway catheter, apx 1300cc. He denies any chest pain, shortness of breath, fever or chills. : Enlarged prostate, difficulty passing urine urine clearing up, no clots, no pain hmg/hct stable discharge home with urology follow up, patient to continue callaway until seen by urology next week Patient taught how to care for leg bag/catheter by primary RN On Finesteride, Flomax and Bactrim to continue outpatient Hypertension On no home medications BP controlled Minutes to complete discharge: 60 Discharge Summary Reason For Visit: HEMATURIA Current Active Problems Benign localized hyperplasia of prostate with urinary obstruction (Acute) Hematuria (Acute) Condition: Improved - Instructions Diet, Activity, Other Instructions: Mr. Farooq Please take the Finesteride 5mg daily and the Flomax 0.4mg daily as ordered. Please call Dr. Galvan on Friday for a follow up appointment next week. Please call me with any questions that you may have. New medications Flomax 0.4mg daily Finesteride 5mg daily Bactrim 1 tablet twice daily for 5 more days [facility] [phone] Referrals: Sin Guerra MD [Staff Physician] - Disposition: HOME - Home Medications Comprehensive Discharge Medication List: Ambulatory Orders Sulfamethoxazole/Trimethoprim [Bactrim Ds -] 1 tab PO BID #14 tablet 01/28/18 Finasteride 5 mg PO DAILY #30 tablet 01/30/18 Tamsulosin HCl [Flomax] 0.4 mg PO HS #30 cap.er.24h 01/30/18 This patient is new to me today: No Emergency Visit: Yes ED Registration Date: 01/29/18 Care time: The patient presented to the Emergency Department on the above date and was hospitalized for further evaluation of their emergent condition. Critical Care patient: No - Discharge Referral Referred to [facility] No
== END 2018-01-31 15:53 | disposition home or self-care (01) ==
LOC: JER 12:58 → JERBED 16:03 → J5S 19:53
PROVIDERS: ADMIT Internal Medicine; ATTEND Nurse Practitioner Family
PROC: 0T9B70Z Drainage of Bladder with Drainage Device, Via Natural or Artificial Opening (ICD-10-PCS; principal; 2018-01-29)
PROC: 3E0337Z Introduction of Electrolytic and Water Balance Substance into Peripheral Vein, Percutaneous Approach (ICD-10-PCS; 2018-01-29)
DX: N40.1 Benign prostatic hyperplasia with lower urinary tract symptoms (principal); N13.8 Other obstructive and reflux uropathy; R31.0 Gross hematuria
CPT/HCPCS: 36415; 71045-TC-FY; 80048; 80053; 80061; 81003; 81015; 83036; 83721; 83735; 85025; 86850; 86900; 86901; 87086; 93005; 93010; 99283-25; G0378; J7030

== ENCOUNTER 2022-10-28 08:29 | Emergency (ER) | payer OTHER ==
[2022-10-28 08:43] VITALS: BP 156/100; PULSE 102; RESP 16; TEMP 97.8; BMI 32.8
[2022-10-28 09:41] LABS: PH,URINE 5.5 (5.0-8.0); URINE APPEARANCE CLEAR; URINE BILIRUBIN NEGATIVE (NEGATIVE); URINE COLOR YELLOW; URINE GLUCOSE (UA) 3+ (NEGATIVE); URINE KETONE NEGATIVE (NEGATIVE); URINE LEUK ESTERASE NEGATIVE (NEGATIVE); URINE NITRITE NEGATIVE (NEGATIVE); URINE PROTEIN TRACE (NEGATIVE); URINE UROBILINOGEN 0.2 mg/dL (0.2-1.0)
[2022-10-28 12:44] LABS: BASO % 0.7 % (0-2.0); HEMATOCRIT 39.9 % (35.4-49); LYMPH % 34.7 % (8-40); MCH 33.8 pg (25.7-33.7); MCHC 35.2 g/dl (32.0-35.9); MONO % 6.9 % (3.8-10.2); NEUT % 56.7 % (42.8-82.8); PLATELET COUNT 169 10^3/uL (134-434); RBC 4.16 M/mm3 (4.00-5.60); RDW 12.7 % (11.9-15.9); WHITE BLOOD COUNT 5.6 K/mm3 (4.0-10.0)
[2022-10-28 13:09] LABS: CALCIUM 9.2 mg/dL (8.5-10.1)
[2022-10-28 13:10] LABS: BLOOD UREA NITROGEN 19.4 mg/dL (7-18)
[2022-10-28 13:13] LABS: CREATININE 1.3 mg/dL (0.55-1.3)
== END 2022-10-28 13:28 | disposition home or self-care (01) ==
LOC: JER 08:29
DX: R33.9 Retention of urine, unspecified (principal); R73.9 Hyperglycemia, unspecified
CPT/HCPCS: 36415; 76857; 80048; 81003; 82010; 82962; 83036; 85025; 87086; 99284-25

== ENCOUNTER 2022-11-10 07:38 | Inpatient (IN) | payer OTHER ==
[2022-11-10] MEDS ORDERED: ACETAMINOPHEN 1000 MG/100 ML BAG IVPB ONE (08:31)
[2022-11-10] MEDS ORDERED: SODIUM CHLORIDE 0.9% 500 ML INFUS.BAG IV ONE (08:37)
[2022-11-10] MEDS ORDERED: ACETAMINOPHEN INJECTION 100 ML IVPB ONE ×2 (08:41→21:10)
[2022-11-10 09:41] LABS: BASO % 0.2 % (0-2.0); EOS % 0.3 % (0-4.5); HEMATOCRIT 36.6 % (35.4-49); HEMOGLOBIN 12.8 GM/dL (11.7-16.9); LYMPH % 15.4 % (8-40); MCH 33.6 pg (25.7-33.7); MCHC 35.1 g/dl (32.0-35.9); MEAN CELL VOLUME 95.8 fl (80-96); MEAN PLT VOLUME 9.6 fl (7.5-11.1); MONO % 10.8 % (3.8-10.2); NEUT % 73.3 % (42.8-82.8); PLATELET COUNT 197 10^3/uL (134-434); RBC 3.82 M/mm3 (4.00-5.60); RDW 12.1 % (11.9-15.9); WHITE BLOOD COUNT 8.2 K/mm3 (4.0-10.0)
[2022-11-10 09:41] LABS: VENOUS BASE EXCESS 0.1 mmol/L (-2-2); VENOUS O2 SATURATION 58.9 % (70-80); VENOUS PCO2 45.8 mmHg (38-52); VENOUS PH 7.368 (7.310-7.410)
[2022-11-10 09:49] LABS: EPI CELLS 20 /uL (0-25.1); HYALINE CASTS 7 /uL (0-3.1); PH,URINE 5.5 (5.0-8.0); URINE APPEARANCE TURBID; URINE BACTERIA 4084 /uL (0-1359); URINE BILIRUBIN NEGATIVE (NEGATIVE); URINE COLOR YELLOW; URINE GLUCOSE (UA) NEGATIVE (NEGATIVE); URINE KETONE NEGATIVE (NEGATIVE); URINE LEUK ESTERASE 3+ (NEGATIVE); URINE NITRITE POSITIVE (NEGATIVE); URINE PROTEIN 2+ (NEGATIVE); URINE UROBILINOGEN 0.2 mg/dL (0.2-1.0); URINE WBC 20958 /uL (0-25.8)
[2022-11-10] MEDS ORDERED: CEFTRIAXONE 1,000 MG in DEXTROSE 5%-WATER - 50 ML IVPB ONE (09:55)
[2022-11-10] MEDS ORDERED: CEFTRIAXONE 1 GM/50 ML BAG ONE (10:05)
[2022-11-10 10:31] LABS: ALBUMIN 3.3 g/dl (3.4-5.0)
[2022-11-10 10:35] LABS: CREATININE 2.3 mg/dL (0.55-1.3)
[2022-11-10 10:36] LABS: BILIRUBIN,TOTAL 1.1 mg/dL (0.2-1); TOT PROT 7.4 g/dl (6.4-8.2)
[2022-11-10 10:46] LABS: BLOOD UREA NITROGEN 46.9 mg/dL (7-18)
[2022-11-10] MEDS ORDERED: LIDOCAINE HCL 2% JELLY 10 ML CARTRIDGE UR ONE (12:41)
[2022-11-10 12:44] LABS: URINE RBC 346 /uL (0-23.9); YEAST NONE SEEN (NEGATIVE)
[2022-11-10] MEDS ORDERED: LIDOCAINE HCL 2% JELLY 6 ML TP ONE (13:16)
[2022-11-10] MEDS ORDERED: LIDOCAINE HCL 2% JELLY 11 ML TP ONE (13:17)
[2022-11-10] MEDS ORDERED: ACETAMINOPHEN 1000 MG/100 ML BAG IVPB PRN (21:00)
[2022-11-10] MEDS: HEPARIN NA (PORCINE) 5,000 UNITS/ML 1ML VIAL SQ SCH (21:08)
[2022-11-10] MEDS: traMADol HCL 50 MG TABLET PO PRN (21:08)
[2022-11-10] MEDS ORDERED: HEPARIN NA (PORCINE) 5,000 UNITS/ML 1ML VIAL ONE (21:10)
[2022-11-10] MEDS ORDERED: traMADol HCL 50 MG TABLET ONE (21:10)
[2022-11-11 07:10] LABS: HEMATOCRIT 33.2 % (35.4-49); HEMOGLOBIN 11.8 GM/dL (11.7-16.9); MCH 33.9 pg (25.7-33.7); MCHC 35.4 g/dl (32.0-35.9); MEAN CELL VOLUME 95.7 fl (80-96); MEAN PLT VOLUME 9.5 fl (7.5-11.1); PLATELET COUNT 196 10^3/uL (134-434); RBC 3.47 M/mm3 (4.00-5.60); RDW 12.1 % (11.9-15.9); WHITE BLOOD COUNT 9.6 K/mm3 (4.0-10.0)
[2022-11-11 07:14] LABS: INR 1.27 (0.83-1.09); PROTHROMBIN TIME (PATIENT) 14.7 SEC (9.7-13.0)
[2022-11-11 07:39] LABS: CALCIUM 8.4 mg/dL (8.5-10.1)
[2022-11-11 07:40] LABS: ALBUMIN 2.9 g/dl (3.4-5.0); BLOOD UREA NITROGEN 41.2 mg/dL (7-18); MAGNESIUM 1.8 mg/dL (1.8-2.4)
[2022-11-11 07:43] LABS: CREATININE 1.9 mg/dL (0.55-1.3); PHOSPHOROUS 3.7 mg/dL (2.5-4.9)
[2022-11-11 07:44] LABS: BILIRUBIN,TOTAL 0.9 mg/dL (0.2-1); TOT PROT 6.8 g/dl (6.4-8.2)
[2022-11-11] MEDS ORDERED: LOSARTAN POTASSIUM 50 MG TABLET ONE (08:42)
[2022-11-11] MEDS ORDERED: HYDROCHLOROTHIAZIDE 25 MG TABLET (FP) ONE (08:42)
[2022-11-11] MEDS ORDERED: TAMSULOSIN HCL 0.4 MG CAP ONE (08:42)
[2022-11-11] MEDS ORDERED: HEPARIN NA (PORCINE) 5,000 UNITS/ML 1ML VIAL ONE ×2 (08:42→13:32)
[2022-11-11] MEDS ORDERED: CEFTRIAXONE 1 GM/50 ML BAG ONE (08:43)
[2022-11-11] MEDS: FINASTERIDE 5 MG TABLET (FP) PO SCH (09:30)
[2022-11-11] MEDS: HEPARIN NA (PORCINE) 5,000 UNITS/ML 1ML VIAL SQ SCH ×3 (09:30→22:16)
[2022-11-11] MEDS: HYDROCHLOROTHIAZIDE 12.5 MG CAPSULE (FP) PO SCH (09:30)
[2022-11-11] MEDS: TAMSULOSIN HCL 0.4 MG CAP PO SCH (09:30)
[2022-11-11] MEDS: CEFTRIAXONE 1 GM in DEXTROSE 5%-WATER - 50 ML IVPB SCH (10:00)
[2022-11-11] MEDS: LOSARTAN POTASSIUM 50 MG TABLET PO SCH (10:09)
[2022-11-11] MEDS: SODIUM CHLORIDE 0.45% 1,000 ML IV SCH (18:45)
[2022-11-11 21:09] VITALS: BMI 31.8
[2022-11-11] MEDS: INSULIN SLIDING SCALE (NOVOLOG) 1 VIAL SQ SCH (22:18)
[2022-11-12] MEDS: HEPARIN NA (PORCINE) 5,000 UNITS/ML 1ML VIAL SQ SCH ×3 (05:33→22:00)
[2022-11-12] MEDS: INSULIN SLIDING SCALE (NOVOLOG) 1 VIAL SQ SCH ×4 (06:23→22:00)
[2022-11-12] MEDS: LOSARTAN POTASSIUM 50 MG TABLET PO SCH (09:11)
[2022-11-12] MEDS: traMADol HCL 50 MG TABLET PO PRN (09:12)
[2022-11-12] MEDS: TAMSULOSIN HCL 0.4 MG CAP PO SCH (09:13)
[2022-11-12] MEDS: HYDROCHLOROTHIAZIDE 12.5 MG CAPSULE (FP) PO SCH (09:13)
[2022-11-12] MEDS: CEFTRIAXONE 1 GM in DEXTROSE 5%-WATER - 50 ML IVPB SCH (09:13)
[2022-11-12] MEDS: FINASTERIDE 5 MG TABLET (FP) PO SCH (09:15)
[2022-11-12] MEDS: SODIUM CHLORIDE 0.45% 1,000 ML IV SCH ×2 (09:44→22:02)
[2022-11-12] MEDS: INSULIN (LEVEMIR) 100 UNITS/ML UNITS SQ SCH ×2 (10:52→22:00)
[2022-11-12 10:56] LABS: BASO % 0.5 % (0-2.0); EOS % 1.5 % (0-4.5); HEMATOCRIT 30.8 % (35.4-49); HEMOGLOBIN 10.9 GM/dL (11.7-16.9); LYMPH % 19.4 % (8-40); MCH 33.7 pg (25.7-33.7); MCHC 35.3 g/dl (32.0-35.9); MEAN CELL VOLUME 95.4 fl (80-96); MEAN PLT VOLUME 9.5 fl (7.5-11.1); MONO % 9.6 % (3.8-10.2); PLATELET COUNT 198 10^3/uL (134-434); RBC 3.23 M/mm3 (4.00-5.60); RDW 12.1 % (11.9-15.9); WHITE BLOOD COUNT 8.4 K/mm3 (4.0-10.0)
[2022-11-12 11:24] LABS: CALCIUM 8.2 mg/dL (8.5-10.1)
[2022-11-12 11:25] LABS: BLOOD UREA NITROGEN 36.6 mg/dL (7-18)
[2022-11-12 11:28] LABS: CREATININE 1.6 mg/dL (0.55-1.3)
[2022-11-13] MEDS: HEPARIN NA (PORCINE) 5,000 UNITS/ML 1ML VIAL SQ SCH ×2 (06:40→14:23)
[2022-11-13] MEDS: INSULIN SLIDING SCALE (NOVOLOG) 1 VIAL SQ SCH ×4 (06:40→21:57)
[2022-11-13] MEDS: TAMSULOSIN HCL 0.4 MG CAP PO SCH (08:07)
[2022-11-13] MEDS: LOSARTAN POTASSIUM 50 MG TABLET PO SCH (10:00)
[2022-11-13] MEDS: FINASTERIDE 5 MG TABLET (FP) PO SCH (10:01)
[2022-11-13] MEDS: HYDROCHLOROTHIAZIDE 12.5 MG CAPSULE (FP) PO SCH (10:02)
[2022-11-13] MEDS: INSULIN (LEVEMIR) 100 UNITS/ML UNITS SQ SCH ×2 (10:02→21:57)
[2022-11-13] MEDS: CEFTRIAXONE 1 GM in DEXTROSE 5%-WATER - 50 ML IVPB SCH (10:03)
[2022-11-13 11:14] LABS: HEMATOCRIT 31.8 % (35.4-49); HEMOGLOBIN 11.3 GM/dL (11.7-16.9); MCH 34.1 pg (25.7-33.7); MCHC 35.4 g/dl (32.0-35.9); MEAN CELL VOLUME 96.4 fl (80-96); MEAN PLT VOLUME 9.5 fl (7.5-11.1); PLATELET COUNT 219 10^3/uL (134-434); RDW 12.1 % (11.9-15.9); WHITE BLOOD COUNT 6.4 K/mm3 (4.0-10.0)
[2022-11-13 11:42] LABS: ALBUMIN 2.7 g/dl (3.4-5.0); MAGNESIUM 1.7 mg/dL (1.8-2.4)
[2022-11-13 11:45] LABS: CREATININE 1.5 mg/dL (0.55-1.3); PHOSPHOROUS 3.1 mg/dL (2.5-4.9)
[2022-11-13 11:46] LABS: TOT PROT 6.4 g/dl (6.4-8.2)
[2022-11-13 11:47] LABS: BILIRUBIN,TOTAL 0.6 mg/dL (0.2-1)
[2022-11-13] MEDS: SODIUM CHLORIDE 0.45% 1,000 ML IV SCH (21:57)
[2022-11-14] MEDS ORDERED: LIDOCAINE HCL 2% JELLY 10 ML CARTRIDGE TP ONE
[2022-11-14] MEDS ORDERED: INSULIN (NOVOLOG) ASPART 100 UNITS/ML 10ML VIAL ONE (06:33)
[2022-11-14] MEDS: HEPARIN NA (PORCINE) 5,000 UNITS/ML 1ML VIAL SQ SCH ×3 (06:34→22:23)
[2022-11-14] MEDS: INSULIN SLIDING SCALE (NOVOLOG) 1 VIAL SQ SCH ×4 (06:35→22:30)
[2022-11-14] MEDS: SODIUM CHLORIDE 0.45% 1,000 ML IV SCH (06:36)
[2022-11-14] MEDS: TAMSULOSIN HCL 0.4 MG CAP PO SCH (08:04)
[2022-11-14 08:53] LABS: BASO % 0.7 % (0-2.0); EOS % 3.6 % (0-4.5); HEMATOCRIT 30.5 % (35.4-49); HEMOGLOBIN 10.7 GM/dL (11.7-16.9); LYMPH % 36.9 % (8-40); MCH 33.4 pg (25.7-33.7); MCHC 35.1 g/dl (32.0-35.9); MEAN CELL VOLUME 95.3 fl (80-96); MONO % 9.4 % (3.8-10.2); NEUT % 49.4 % (42.8-82.8); PLATELET COUNT 215 10^3/uL (134-434); RDW 12.1 % (11.9-15.9); WHITE BLOOD COUNT 5.1 K/mm3 (4.0-10.0)
[2022-11-14 09:09] LABS: CALCIUM 8.4 mg/dL (8.5-10.1)
[2022-11-14 09:10] LABS: ALBUMIN 2.6 g/dl (3.4-5.0); BLOOD UREA NITROGEN 28.3 mg/dL (7-18); MAGNESIUM 1.8 mg/dL (1.8-2.4)
[2022-11-14] MEDS: HYDROCHLOROTHIAZIDE 12.5 MG CAPSULE (FP) PO SCH (09:11)
[2022-11-14] MEDS: LOSARTAN POTASSIUM 50 MG TABLET PO SCH (09:11)
[2022-11-14] MEDS: FINASTERIDE 5 MG TABLET (FP) PO SCH (09:12)
[2022-11-14] MEDS: CEFTRIAXONE 1 GM in DEXTROSE 5%-WATER - 50 ML IVPB SCH (09:12)
[2022-11-14 09:13] LABS: CREATININE 1.4 mg/dL (0.55-1.3); PHOSPHOROUS 3.4 mg/dL (2.5-4.9)
[2022-11-14 09:14] LABS: BILIRUBIN,TOTAL 0.4 mg/dL (0.2-1); TOT PROT 6.4 g/dl (6.4-8.2)
[2022-11-14] MEDS: INSULIN (LEVEMIR) 100 UNITS/ML UNITS SQ SCH ×2 (09:50→22:28)
[2022-11-14] MEDS ORDERED: ONDANSETRON 4 MG/2 ML VIAL IVPUSH PRN ×2 (13:51→15:08)
[2022-11-14] MEDS ORDERED: oxyCODONE HCL 5 MG TABLET PO PRN ×2 (13:51→15:08)
[2022-11-14] MEDS ORDERED: MIDAZOLAM HCL 2 MG/2 ML SINGLE DOSE VIAL ONE (14:08)
[2022-11-14] MEDS ORDERED: ceFAZolin SODIUM 1 GM VIAL IVPB ONE ×2 (14:20)
[2022-11-14] MEDS ORDERED: ceFAZolin SODIUM 1 GM VIAL ONE ×2 (14:26)
[2022-11-14] MEDS ORDERED: SODIUM CHLORIDE 0.45% 1,000 ML IV SCH (15:08)
[2022-11-15 04:39] VITALS: RESP 18
[2022-11-15] MEDS ORDERED: ACETAMINOPHEN 1000 MG/100 ML BAG IVPB ONE (04:48)
[2022-11-15] MEDS: HEPARIN NA (PORCINE) 5,000 UNITS/ML 1ML VIAL SQ SCH ×2 (05:01→14:15)
[2022-11-15] MEDS: INSULIN SLIDING SCALE (NOVOLOG) 1 VIAL SQ SCH ×2 (06:00→11:20)
[2022-11-15] MEDS ORDERED: TAMSULOSIN HCL 0.4 MG CAP PO SCH (08:30)
[2022-11-15] MEDS ORDERED: FINASTERIDE 5 MG TABLET (FP) PO SCH (10:00)
[2022-11-15] MEDS ORDERED: LOSARTAN POTASSIUM 50 MG TABLET PO SCH (10:00)
[2022-11-15] MEDS ORDERED: CEFTRIAXONE 1 GM in DEXTROSE 5%-WATER - 50 ML IVPB SCH (10:00)
[2022-11-15] MEDS: INSULIN (LEVEMIR) 100 UNITS/ML UNITS SQ SCH (11:12)
[2022-11-15] MEDS ORDERED: INSULIN (NOVOLOG) ASPART 100 UNITS/ML 10ML VIAL ONE (11:16)
[2022-11-15 11:33] LABS: HEMATOCRIT 29.5 % (35.4-49); HEMOGLOBIN 10.4 GM/dL (11.7-16.9); MCH 33.6 pg (25.7-33.7); MCHC 35.1 g/dl (32.0-35.9); MEAN CELL VOLUME 95.9 fl (80-96); MEAN PLT VOLUME 8.3 fl (7.5-11.1); PLATELET COUNT 235 10^3/uL (134-434); RBC 3.08 M/mm3 (4.00-5.60); RDW 11.8 % (11.9-15.9); WHITE BLOOD COUNT 6.4 K/mm3 (4.0-10.0)
[2022-11-15 12:04] LABS: BLOOD UREA NITROGEN 21.2 mg/dL (7-18)
[2022-11-15 12:05] LABS: CALCIUM 8.2 mg/dL (8.5-10.1)
[2022-11-15 12:08] LABS: CREATININE 1.3 mg/dL (0.55-1.3)
[2022-11-15 13:56] VITALS: BP 133/84; PULSE 97; TEMP 98.1
== END 2022-11-15 17:10 | disposition home or self-care (01) | DRG 726 ==
LOC: JER 07:38 → JERBED 14:37 → J6S 11-11 20:48
PROVIDERS: ADMIT Internal Medicine; ATTEND Internal Medicine
PROC: 0TJB8ZZ Inspection of Bladder, Via Natural or Artificial Opening Endoscopic (ICD-10-PCS; principal; 2022-11-14 14:07)
DX: N40.1 Benign prostatic hyperplasia with lower urinary tract symptoms (principal); N13.8 Other obstructive and reflux uropathy; N13.6 Pyonephrosis; J98.11 Atelectasis; N17.9 Acute kidney failure, unspecified; I10 Essential (primary) hypertension; E11.9 Type 2 diabetes mellitus without complications; N32.89 Other specified disorders of bladder; R00.0 Tachycardia, unspecified; R31.0 Gross hematuria; Z53.8 Procedure and treatment not carried out for other reasons
CPT/HCPCS: 0241U-QW; 36415; 74176-TC; 76775-TC; 76856-TC; 80048; 80053; 81003; 82803; 82962; 83036; 83605; 83690; 83735; 84100; 84443; 84484; 85025; 85027; 85610; 85730; 87040; 87086; 87186; 93005; 93010; 94760; 99285-25; J1644